=== PATIENT | female | born 1990 | race Caucasian/White ===

== ENCOUNTER → 2017-09-23 11:35 | Outpatient (CLI) | payer OTHER, SELFPAY ==
--- NOTE | 2017-09-23 | DI.MRI.S_ITS ---
PROCEDURE: MR ANGIO HEAD WO CON INDICATIONS: tinnitus right ear TECHNIQUE: Noncontrast axial 3-D [id number] MR angiogram, with 3-dimensional maximum intensity projection (MIP) reformats of the internal carotid arteries and posterior circulation then performed. COMPARISON: None. FINDINGS: Image quality: Excellent. Anterior circulation: Intracranial internal carotid arteries demonstrate normal size and intraluminal flow signal. The flow within the paired anterior cerebral arteries is normal and symmetric. The flow within the middle cerebral arteries is normal and symmetric. The anterior communicating artery is seen. There is a left-sided arterial loop seen, which approaches the left internal auditory canal, as on series 2 images 22 and 23. No stenoses, occlusions, or aneurysms. Posterior circulation: Visualized portions of the vertebral arteries demonstrate normal caliber, and join to form a normal appearing basilar artery. The flow within the posterior cerebral arteries is normal and symmetric. No stenoses, occlusions, or aneurysms. IMPRESSION: Incidental note is made of a left-sided arterial loop, which approaches the left internal auditory canal. Given the patient's history of right-sided tinnitus, this is felt most likely to be an incidental finding of no clinical consequence. Dictated by: Jan Hurt M.D. on 09/23/2017 at 11:32 Approved by: Jan Hurt M.D. on 09/23/2017 at 11:34
== END ==
PROVIDERS: Visit Provider Otolaryngology
DX: H93.11 Tinnitus, right ear (principal)
CPT/HCPCS: 70544